=== PATIENT | male | born 1990 | race Caucasian/White ===

== ENCOUNTER → 2018-10-05 | Emergency (ER) | payer SELFPAY ==
[2018-10-05] MEDS: IBUPROFEN 600 MG TAB PO (14:29)
== END | disposition home or self-care (01) ==
LOC: FTE 14:11
DX: S99.911A Unspecified injury of right ankle, initial encounter (principal); X50.0XXA Overexertion from strenuous movement or load, initial encounter; Y92.322 Soccer field as the place of occurrence of the external cause
CPT/HCPCS: 73610; 73610-RT; 99283-25